=== PATIENT | female | born 1960 | race Caucasian/White ===

== ENCOUNTER 2016-07-03 06:08 | Day surgery (SDC) | payer BC ==
[2016-07-03] VITALS (11 sets, daily range): BP systolic 118–169; BP diastolic 66–85; PULSE 68–80; RESP 12–31; Ht 170.2 cm; Wt 92.6 kg
[~2016-07-03] VITALS: Ht 170.2 cm; Wt 92.6 kg
[~2016-07-03 06:08] MED LIST: AMOXICILLIN; IBUP-727
[2016-07-03] MEDS ORDERED: LISI10TA2 PO (07:00)
--- NOTE | 2016-07-03 07:27 | HPN ---
Date/Time of Note Date/Time of Note DATE: 07/03/16 TIME: 07:27 Interval H&P Admission Note Pt. seen H&P reviewed: No system changes SHAHBAZ STONE MD Jul 03, 2016 07:27
[2016-07-03] MEDS ORDERED: SUCCINYLCHOLINE CHLORIDE 100 MG/5 ML SYG IV ONE (08:00)
[2016-07-03] MEDS ORDERED: PROPOFOL 100 ML ONE (08:00)
[2016-07-03] MEDS ORDERED: FENTAnyl 50 MCG/ML VIAL ONE (08:01)
[2016-07-03] MEDS ORDERED: MIDAZOLAM 1 MG/ML 2 ML INJ ONE (08:01)
[2016-07-03] MEDS ORDERED: LIDOCAINE 1% (MDV) 20 ML INJ ONE (08:01)
[2016-07-03] MEDS ORDERED: CEFAZOLIN 1 GM INJ ONE (08:19)
[2016-07-03] MEDS ORDERED: ONDANSETRON 4 MG INJ ONE (08:23)
[2016-07-03] MEDS ORDERED: DEXAMETHASONE 4 MG/ML 1 ML INJ ONE (08:23)
[2016-07-03] MEDS ORDERED: FAMOTIDINE 20 MG INJ ONE (08:23)
--- NOTE | 2016-07-03 08:41 | PD.PPDC ---
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
[2016-07-03] MEDS ORDERED: LABETALOL HCL 20MG INJ IV PRN (09:00)
[2016-07-03] MEDS ORDERED: hydrALAzine 20 MG INJ IV PRN (09:00)
[2016-07-03] MEDS ORDERED: MEPERIDINE 25 MG INJ IV PRN (09:00)
[2016-07-03] MEDS ORDERED: HYDROmorphONE (0.2 MG/ML) 10ML SYG IV PRN ×2 (09:00)
--- NOTE | 2016-07-03 09:19 | OPR ---
DATE OF OPERATION: 07/03/2016 PREOPERATIVE DIAGNOSIS: Postmenopausal bleeding. POSTOPERATIVE DIAGNOSIS: See pathological report. OPERATION PERFORMED: Fractional dilatation and curettage. ANESTHESIA: General. ANESTHESIOLOGIST: Dr. Hall SURGEON: Kamala Antonio MD ESTIMATED BLOOD LOSS: Negligible. PROCEDURE: Under appropriate induction of general anesthesia the patient was placed in the dorsal l ithotomy position. The perineal area and vaginal wall was prepped and draped in the usual aseptic m conchis. On bimanual examination, the uterus was felt to be slightly increased in size. The surface is smooth. There is no palpable adnexal pathology. A weighted speculum was introduced. There is a first-degree uterine prolapse noted. The cervix clear. Anterior cervix was grasped with a single tooth tenaculum. Endocervical curettage was performed with obtaining scanty tissue with mucus, whic h was sent to pathology. Cavity was sounded to 8.5 cm and the os was dilated enough to submit the s mall curet, which was inserted in the intrauterine cavity. The entire uterine cavity was curetted i n all directions, with obtaining scanty tissue, which was sent to pathology. There was no noticeabl e irregularity noted. forceps was introduced. Searched for a polyp, which was negative. Pro cedure was completed. Instruments were removed from the operative field. Patient withstood the pro cedure well and was sent to the recovery room in stable condition. Dictated By: KAMALA HOUGH/RENEE Conf#: [id number] DID#: [id number]
== END 2016-07-03 10:42 | disposition home or self-care (01) ==
LOC: SDS 06:08
PROVIDERS: ATTEND Obstetrics & Gynecology
DX: N95.0 Postmenopausal bleeding (principal); N81.2 Incomplete uterovaginal prolapse; I10 Essential (primary) hypertension; R10.2 Pelvic and perineal pain; N85.00 Endometrial hyperplasia, unspecified; K21.9 Gastro-esophageal reflux disease without esophagitis
CPT/HCPCS: 58120; 88305; J0330; J0690; J1100; J1170; J2250; J2405; J3010; Z7512; Z7610

== ENCOUNTER 2018-06-08 20:53 | Emergency (ER) | payer BC ==
[~2018-06-08] VITALS: Ht 170.2 cm; Wt 95.9 kg
[~2018-06-08 20:53] MED LIST changes: -AMOXICILLIN; +APIX5TAB PO; +ENOX30DI10 SQ; +ENOX60DI2 SC; -IBUP-727; +LISI10TA2 PO; +RANI150T5 PO
[2018-06-08 20:58] VITALS: Ht 170.2 cm; Wt 95.9 kg
[2018-06-08] MEDS ORDERED: FAMO20TA18 PO (21:29)
[2018-06-08] MEDS ORDERED: IBUP-1545 PO (21:29)
[2018-06-08] MEDS ORDERED: LISI10TA2 PO (21:29)
[2018-06-08] MEDS ORDERED: APIX5TAB PO (21:30)
--- NOTE | 2018-06-08 21:56 | ERD ---
ER Documentation Chief Complaint Chief Complaint BIB RA90 for evaluation of ALOC, slurred speech HPI 58-year-old female brought to the emergency department by ambulance for evaluation of slurred speech. Patient was in her usual state of health until approximately 20 minutes prior to arrival. This makes her last known well time approximately 8:45 PM. Patient was recovering from a left knee surgery. She apparently obtained a post operative DVT in her left leg. She was started on Eliquis. Today, the family states that she has been describing a posterior Headache but was otherwise neurologically normal. This afternoon after waking from a nap at approximately 845, she was slurring her speech and had a right- sided facial droop. She had no other focal weakness or numbness. 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 Pre-hospital vital signs were reviewed. Pre-hospital diagnostic tests were reviewed. On arrival, patient has no other acute complaints. According to the family no other complaints are noted. ROS All systems reviewed and are negative except as per history of present illness. Medications Home Meds Reported Medications Apixaban* (Eliquis*) 5 Mg Tablet, 5 MG PO BID, TAB 06/08/18 Ibuprofen* (Ibuprofen*) 800 Mg Tab, 800 MG PO TID, TAB 06/08/18 Famotidine* (Famotidine*) 20 Mg Tablet, 20 MG PO TID, #60 TAB 06/08/18 Lisinopril* (Lisinopril*) 10 Mg Tablet, 20 MG PO DAILY, #30 TAB 06/08/18 Discontinued Reported Medications Ranitidine Hcl* (Ranitidine Hcl*) 150 Mg Tablet, 150 MG PO HS, #30 TAB 04/25/18 Lisinopril* (Lisinopril*) 10 Mg Tablet, 10 MG PO BID, #30 TAB 04/25/18 Discontinued Scripts Enoxaparin Sodium (Enoxaparin Sodium) 60 Mg/0.6 Ml Syringe, 60 MG SC BID for 7 Days, SYR Prov:TOMA CASILLAS MD 04/29/18 Enoxaparin Sodium* (Lovenox*) 30 Mg/0.3 Ml Disp.syrin, 30 MG SQ BID for 7 Days, SYR Prov:TOMA CASILLAS MD 04/29/18 Apixaban* (Eliquis*) 5 Mg Tablet, 10 MG PO BID for 7 Days, TAB Prov:TOMA CASILLAS MD 04/29/18 Allergies Allergies: Coded Allergies: No Known Allergies (Verified Allergy, Unknown, 06/08/18) PMhx/Soc History of Surgery: Yes (LEFT KNEE SURGERY) Anesthesia Reaction: No Hx Neurological Disorder: No Hx Respiratory Disorders: No Hx Cardiac Disorders: Yes (HTN) Hx Psychiatric Problems: No Hx Miscellaneous Medical Probl: Yes (DVT) Hx Alcohol Use: No Hx Substance Use: No Hx Tobacco Use: No Smoking Status: Never smoker FmHx Supportive family at the bedside Physical Exam Vitals Vital Signs Date Temp Pulse Resp B/P (MAP) Pulse Ox O2 O2 Flow FiO2 Time Delivery Rate 06/08/18 98.1 96 16 157/82 98 20:58 (107) Physical Exam GENERAL: The patient is well developed and appropriate for usual state of health in no apparent distress HEENT: Pupils equal, round, and reactive to light. EOMI. There is no scleral icterus. NECK: C-spine is soft and supple, there is no meningismus. There is no cervical lymphadenopathy. LUNGS: Clear to auscultation bilaterally. There are no rales, wheezes or rhonchi. HEART: Regular rate and rhythm, no murmurs, clicks, rubs or gallops. ABDOMEN: Soft, non-tender, non-distended. There are bowel sounds in all four quadrants. No rebound or guarding. EXTREMITIES: Left leg is slightly swollen without a Homans sign. The remainder of the extremities are normal in appearance NEURO: Awake, alert. There is an expressive aphasia. Pupils are midrange, equal round and reactive. Extraocular movements are intact. There is a slight right-sided facial droop. Swallow and gag reflex appear to be normal. Motor strength demonstrates normal strength in both upper extremities without pronator drift on either side. Both lower extremities appear to also have normal strength without obvious drift. Sensory examination is grossly nonfocal. There is no visual field deficit that I can note. Finger to nose is difficult and appears to be abnormal on the right side SKIN: There is no apparent rash or petechiae. HEME/LYMPHATIC: There is no evidence of excessive bruising or lymphedema. PSYCHIATRIC: The patient does not appear anxious or depressed. Result Diagram: 06/08/18210106/08/182101 Results 24 hrs Laboratory Tests Test 3/20/19 21:02 White Blood Count 6.6 10^3/ul Red Blood Count 4.61 10^6/ul Hemoglobin 12.4 g/dl Hematocrit 38.7 % Mean Corpuscular Volume 83.9 fl Mean Corpuscular Hemoglobin 26.9 pg Mean Corpuscular Hemoglobin Concent 32.0 g/dl Red Cell Distribution Width 13.1 % Platelet Count 239 10^3/UL Mean Platelet Volume 10.1 fl Immature Granulocytes % 0.600 % Neutrophils % 40.4 % Lymphocytes % 44.5 % Monocytes % 10.8 % Eosinophils % 3.2 % Basophils % 0.5 % Nucleated Red Blood Cells % 0.0 /100WBC Immature Granulocytes # 0.040 10^3/ul Neutrophils # 2.7 10^3/ul Lymphocytes # 2.9 10^3/ul Monocytes # 0.7 10^3/ul Eosinophils # 0.2 10^3/ul Basophils # 0.0 10^3/ul Nucleated Red Blood Cells # 0.0 10^3/ul Prothrombin Time 13.9 Sec Prothrombin Time Ratio 1.1 INR International Normalized Ratio 1.06 Activated Partial Thromboplast Time 28.8 Sec Sodium Level 143 mmol/L Potassium Level 3.7 mmol/L Chloride Level 105 mmol/L Carbon Dioxide Level 25 mmol/L Anion Gap 13 Blood Urea Nitrogen 14 mg/dl Creatinine 0.66 mg/dl Est Glomerular Filtrat Rate mL/min > 60 mL/min Glucose Level 100 mg/dl Calcium Level 9.2 mg/dl Creatine Kinase 37 IU/L Creatine Kinase Index 0.8 Creatinine Kinase MB (Mass) 0.28 ng/ml Troponin I < 0.012 ng/ml Triglycerides Level 137 mg/dl Cholesterol Level 149 mg/dl LDL Cholesterol, Calculated 73 mg/dl HDL Cholesterol 49 mg/dl Cholesterol/HDL Ratio 3.0 RATIO Ethyl Alcohol Level < 10.0 mg/dl Procedures/MDM Patient was taken to a room, seen and evaluated. Comfort measures were initiated. Code stroke was initiated upon arrival Diagnostic tests were ordered and reviewed. 3 LEAD RHYTHM STRIP: Normal sinus rhythm without ectopy EK lead EKG reviewed by myself: Normal Sinus Rhythm Normal Ray and intervals No ST elevation, depression, or T wave inversion Impression: Normal EKG RADIOLOGY: Reviewed with the radiologist CONSULTATION: Code stroke neurologist was notified upon arrival Radiologist called back and indicated that there was no infarct. 2149: Calls were initially placed for transfer for higher level of care [facility], who had no beds. We then have placed a phone call to [facility] REEVALUATION: 2149: Blood pressures remain stable. Neurologically patient is remained unchanged. MEDICAL DECISION MAKING: Patient presents with acute neurologic changes concer sesar for a stroke. Critical care time:> 35 minutes Critical care has included ongoing critical monitoring of neurologic as well as hemodynamic status. Multiple consultations including: Code stroke: Upon arrival Tele neurology: Upon arrival Radiology: Reviewed the CT scan Accepting MD: Pending conversations for transfer for higher level of care TPA: Patient is not a candidate at this time as she is on Eliquis Intravascular decision making: There is no LVO documented or noted on the CTA of the brain. Patient will be transferred for higher level of care for angiography and further intervention as necessary Departure Diagnosis: Primary Impression: Stroke Condition: Critical ISAIASLATANYAYASIR Jun 08, 2018 21:56
--- NOTE | 2018-06-08 22:31 | STROKE ---
Date/Time of Note Date/Time of Note DATE: 06/09/18 TIME: 00:17 Patient Information General Arrival Date Age 58 Gender female Weight 95.91 kg Vital Signs Vital Signs Vital Signs Date Temp Pulse Resp B/P (MAP) Pulse Ox O2 O2 Flow FiO2 Time Delivery Rate 06/08/18 98.1 96 16 157/82 98 20:58 (107) Patient History Current Medications Allergies: Coded Allergies: No Known Allergies (Verified Allergy, Unknown, 04/25/18) History & Physical History of Present Illness 58yo woman s/p right knee surgery, DVT on eliquis consulted for stroke LKWT 6pm. Around 6pm, went upstaris to lay down Family noted at 8pm to have slurred speech, imbalance, and right facial droop. Also, had tingling in LLE, going up, and pressure in chest, then throwing up Took eliquis shortly before 6pm. Worse headache than usual; has chronic headache. NIH Stroke Scale NIH Stroke Scale [id number] l4d LOC Questions: Zoghs6f LOC Commands: Yxmgz6b t Gaze: Ubtpd7y Gowvv8h alsy: Vksnw0o or Arm - Left: Njprz1s ight: Lyluu9r eft: Ytuom6z t: Conzy4i Fmxhs4m Inxci2g est Language: Ylwky6x cecelia: Nqvdc0x ction and Cvoym2v 4Bd Total Score: Kimkz2s Date/Time Recorded DATE: 06/09/18 TIME: 00:17 Submitted By Bobo Stone t-PA Imaging Review Date/Time Imaging Reviewed DATE: 06/09/18 TIME: 00:[address] with no acute finding. 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 Anterior supplying posterior circulation via pcomms b/l. 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 t-PA Administration Weight 95.91 kg Recommedation submitted by Bobo Stone Recommendations Recommendation Given acute change with dysarthria, focal sensory sxs, impaired responsiveness, suspect possible ischemic stroke. While termination of basilar artery could represent an anatomic variant, given pt's presentation, rec further eval to r/o a basilar thromboembolic process with cerebral angiogram. Not tPA candidate given on eliquis. Otherwise, rec permissive HTN, fluids to help with perfusion. Plan for transfer to receive this evaluation. BOBO STONE Jun 08, 2018 21:27
[2018-06-08] MEDS ORDERED: ONDANSETRON 4 MG INJ IV ONE (22:53)
[2018-06-08 23:38] VITALS: BP 148/89; PULSE 86; RESP 19
== END 2018-06-08 23:39 | disposition short-term general hospital (02) ==
LOC: E/R 20:53
DX: I63.9 Cerebral infarction, unspecified (principal); I10 Essential (primary) hypertension; R40.2142 Coma scale, eyes open, spontaneous, at arrival to emergency department; R40.2362 Coma scale, best motor response, obeys commands, at arrival to emergency department; R40.2242 Coma scale, best verbal response, confused conversation, at arrival to emergency department
CPT/HCPCS: 36415; 70450; 70496; 70498; 71045; 80048; 80061; 80307; 81001; 82550; 82553; 83036; 84484; 85025; 85610; 85730; 86850; 86900; 86901; 93005; 96374; J2405; Z7502

== ENCOUNTER 2019-01-26 16:21 | Emergency (ER) | payer BC ==
[~2019-01-26] VITALS: Ht 170.2 cm; Wt 95.0 kg
[~2019-01-26 16:21] MED LIST changes: +ALBU90AE INHALATION; +ATOR40TA68 PO; +DOCU-144 PO; -ENOX30DI10 SQ; -ENOX60DI2 SC; +FAMO20TA18 PO; +GABA100C14 PO; +IBUP-1542 PO; +IBUP-1545 PO; +LORA10TA3 PO; +MECL-77 PO; +METO-448 PO; +TOPI50TA13 PO; +TRAM50TA PO
[2019-01-26 17:09] VITALS: Ht 170.2 cm; Wt 95.0 kg
[2019-01-26 21:01] VITALS: BP 138/67; PULSE 60; RESP 18
== END 2019-01-26 21:02 | disposition home or self-care (01) ==
LOC: E/R 16:21
DX: M79.604 Pain in right leg (principal); M79.605 Pain in left leg; I10 Essential (primary) hypertension; Z79.01 Long term (current) use of anticoagulants
CPT/HCPCS: 80048; 85025; 85610; 85730; 93970; Z7502